=== PATIENT | male | born 1970 | race American Indian/Alaskan Native ===

== ENCOUNTER 2016-12-26 07:46 | Inpatient (IN) | payer OTHER ==
[2016-12-26 08:22] LABS: Hematocrit 38.3 % (35.5-45.6); Hemoglobin 12.5 gm/dl (11.8-15.2); Mean Corpuscular HGB Conc 33 % (32-34); Mean Corpuscular Hemoglobin 27 pg (28-32); Mean Corpuscular Volume 82 fl (84-94); Platelet Count 141 K/mm3 (140-440); Red Blood Count 4.64 M/mm3 (3.65-5.03); Red Cell Distribution Width 15.7 % (13.2-15.2); White Blood Count 3.6 K/mm3 (4.5-11.0)
[2016-12-26 08:33] LABS: INR 1.17 (0.87-1.13)
[2016-12-26 08:34] LABS: Partial Thromboplastin Time 36.9 Sec. (24.2-36.6)
[2016-12-26 08:47] LABS: Anion Gap 15 mmol/L; BUN/Creatinine Ratio 13; Blood Urea Nitrogen 15 mg/dL (9-20); Carbon Dioxide 26 mmol/L (22-30); Glucose 83 mg/dL (75-100); Potassium 4.1 mmol/L (3.6-5.0); Sodium 140 mmol/L (137-145)
--- NOTE | 2016-12-26 09:28 | Cat Scan Report ---
Cranial CT without contrast. History: Headache and right-sided weakness. Findings: The brain parenchyma is normal. There is no evidence of acute hemorrhage or infarct. The posterior fossa is normal. The ventricles are normal in size and contour. There are no masses or extra-axial collections. The calvarium is normal. Impression: Normal study.
[2016-12-26 09:35] LABS: Basophils % (Manual) 0 % (0.0-1.8); Blastocytes % (Manual) 0 %
[2016-12-26 09:36] LABS: Anisocytosis 1+; Diff Status Complete; Platelet Estimate Cons
[2016-12-26] MEDS ORDERED: NORMODYNE IV ONE ×3 (11:07→13:13)
--- NOTE | 2016-12-26 11:11 | Emergency Department Report ---
ED Headache HPI - General Chief Complaint: Headache Stated Complaint: RIGHT ARM NUMBNESS, HEADACHE, NAUSEA Time Seen by Provider: 12/26/16 10:43 Source: patient - History of Present Illness Initial Comments: 46-year-old male here with headache and elevated blood pressure. Patient states he last 24 hours had worsening headache. He noticed that his blood pressures in the 200s. He has been taking all his Times daily. Headache is diffuse and involves his entire head. Had no nausea no vomiting. He's had some vision difficulty. He believes his right eye was slightly droopy earlier but currently this is resolved. He also had some paresthesias in his right arm. Timing/Duration: 24 hours Quality: moderate Recent Head Trauma: occasional headaches Associated Symptoms: other (neck pain) Allergies/Adverse Reactions: Allergies No Known Allergies Allergy (Unverified 04/18/13 08:57) Home Medications: Ambulatory Orders Hydrochlorothiazide 25 mg PO DAILY 04/18/13 amLODIPine [Norvasc] 10 mg PO DAILY 04/18/13 Abacavir/Dolutegravir/Lamivudi [Triumeq Tablet] 1 each PO DAILY 12/26/16 Aspirin [Aspir-Low] 81 mg PO DAILY 12/26/16 Dapsone 100 mg PO DAILY 12/26/16 Metoprolol [Lopressor] 25 mg PO BID 12/26/16 ED Review of Systems ROS: Stated complaint: RIGHT ARM NUMBNESS, HEADACHE, NAUSEA Other details as noted in HPI Comment: All other systems reviewed and negative Constitutional: denies: chills, fever Eyes: denies: eye pain, eye discharge, vision change ENT: denies: ear pain, throat pain Respiratory: denies: cough, shortness of breath, wheezing Cardiovascular: denies: chest pain, palpitations Endocrine: no symptoms reported Gastrointestinal: denies: abdominal pain, nausea, diarrhea Genitourinary: denies: urgency, dysuria Musculoskeletal: denies: back pain, joint swelling, arthralgia Skin: denies: rash, lesions Neurological: headache, paresthesias. denies: weakness Psychiatric: denies: anxiety, depression Hematological/Lymphatic: denies: easy bleeding, easy bruising ED Past Medical Hx - Past Medical History Previous Medical History?: Yes Hx Hypertension: Yes - Surgical History Additional Surgical History: Hernia repair - Family History Family history: no significant - Social History Smoking Status: Never Smoker - Medications Home Medications: Home Medications Medication Instructions Recorded Confirmed Last Taken Type Hydrochlorothiazide 25 mg PO DAILY 04/18/13 12/26/16 12/25/16 History amLODIPine [Norvasc] 10 mg PO DAILY 04/18/13 12/26/16 12/25/16 History Abacavir/Dolutegravir/Lamivudi 1 each PO DAILY 12/26/16 12/26/16 12/25/16 History [Triumeq Tablet] Aspirin [Aspir-Low] 81 mg PO DAILY 12/26/16 12/26/16 12/25/16 History Dapsone 100 mg PO DAILY 12/26/16 12/26/16 12/25/16 History Metoprolol [Lopressor] 25 mg PO BID 12/26/16 12/26/16 12/25/16 History ED Physical Exam - General Limitations: No Limitations General appearance: alert, in no apparent distress - Head Head exam: Present: atraumatic, normocephalic - Eye Eye exam: Present: normal appearance, PERRL, EOMI. Absent: scleral icterus, conjunctival injection - ENT ENT exam: Present: mucous membranes moist - Neck Neck exam: Present: normal inspection - Respiratory Respiratory exam: Present: normal lung sounds bilaterally. Absent: respiratory distress, wheezes, rales - Cardiovascular Cardiovascular Exam: Present: regular rate, normal rhythm, normal heart sounds. Absent: systolic murmur, diastolic murmur, rubs, gallop - GI/Abdominal GI/Abdominal exam: Present: soft, normal bowel sounds. Absent: distended, tenderness - Rectal Rectal exam: Present: deferred - Extremities Exam Extremities exam: Present: normal inspection - Back Exam Back exam: Present: normal inspection - Neurological Exam Neurological exam: Present: alert, oriented X3 - Psychiatric Psychiatric exam: Present: normal affect, normal mood - Skin Skin exam: Present: warm, dry, intact, normal color. Absent: rash ED Course Vital Signs 12/26/16 12/26/16 12/26/16 07:53 07:56 11:19 Pulse Rate 91 H 72 Respiratory 14 Rate Blood Pressure 212/152 225/135 O2 Sat by Pulse 95 Oximetry 12/26/16 11:57 Pulse Rate 70 Respiratory Rate Blood Pressure 183/105 O2 Sat by Pulse Oximetry ED Medical Decision Making - Lab Data Result diagrams: 12/26/16 08:08 12/26/16 08:08 Laboratory Results - last 24 hr 12/26/16 12/26/16 12/26/16 08:08 08:08 08:08 WBC 3.6 L RBC 4.64 Hgb 12.5 Hct 38.3 MCV 82 L MCH 27 L MCHC 33 RDW 15.7 H Plt Count 141 Luce % (Auto) Life Skills Coach Add Manual Diff Complete Total Counted 100 Seg Neuts % (Manual) 52.0 Band Neutrophils % 0 Lymphocytes % (Manual) 34.0 Reactive Lymphs % (Man) 4.0 Monocytes % (Manual) 7.0 Eosinophils % (Manual) 3.0 Basophils % (Manual) 0 Metamyelocytes % 0 Myelocytes % 0 Promyelocytes % 0 Blast Cells % 0 Nucleated RBC % Not Reportable Seg Neutrophils # Man 1.9 Band Neutrophils # 0.0 Lymphocytes # (Manual) 1.2 Abs React Lymphs (Man) 0.1 Monocytes # (Manual) 0.3 Eosinophils # (Manual) 0.1 Basophils # (Manual) 0.0 Metamyelocytes # 0.0 Myelocytes # 0.0 Promyelocytes # 0.0 Blast Cells # 0.0 WBC Morphology Not Reportable Hypersegmented Neuts Not Reportable Hyposegmented Neuts Not Reportable Hypogranular Neuts Not Reportable Smudge Cells Not Reportable Toxic Granulation Not Reportable Toxic Vacuolation Not Reportable Dohle Bodies Not Reportable Pelger-Huet Anomaly Not Reportable Ld Rods Not Reportable Platelet Estimate Cons Clumped Platelets Not Reportable Plt Clumps, EDTA Not Reportable Large Platelets Not Reportable Giant Platelets Not Reportable Platelet Satelliting Not Reportable Plt Morphology Comment Not Reportable RBC Morphology Not Reportable Dimorphic RBCs Not Reportable Polychromasia Not Reportable Hypochromasia Not Reportable Poikilocytosis Not Reportable Anisocytosis 1+ Microcytosis Not Reportable Macrocytosis Not Reportable Spherocytes Not Reportable Pappenheimer Bodies Not Reportable Sickle Cells Not Reportable Target Cells Not Reportable Tear Drop Cells Not Reportable Ovalocytes Not Reportable Helmet Cells Not Reportable [place] Bodies Not Reportable [place] Rings Not Reportable Evelyn Cells Not Reportable Bite Cells Not Reportable Crenated Cell Not Reportable Elliptocytes Not Reportable Acanthocytes (Spur) Not Reportable Rouleaux Not Reportable Hemoglobin C Crystals Not Reportable Schistocytes Not Reportable Malaria parasites Not Reportable Alexis Bodies Not Reportable Hem Pathologist Commnt No PT 15.5 H INR 1.17 H APTT 36.9 H Thrombin Time Sodium 140 Potassium 4.1 Chloride 103.0 Carbon Dioxide 26 Anion Gap 15 BUN 15 Creatinine 1.2 Estimated GFR > 60 BUN/Creatinine Ratio 13 Glucose 83 Calcium 9.0 Troponin T < 0.010 12/26/16 08:08 WBC RBC Hgb Hct MCV MCH MCHC RDW Plt Count Luce % (Auto) Add Manual Diff Total Counted Seg Neuts % (Manual) Band Neutrophils % Lymphocytes % (Manual) Reactive Lymphs % (Man) Monocytes % (Manual) Eosinophils % (Manual) Basophils % (Manual) Metamyelocytes % Myelocytes % Promyelocytes % Blast Cells % Nucleated RBC % Seg Neutrophils # Man Band Neutrophils # Lymphocytes # (Manual) Abs React Lymphs (Man) Monocytes # (Manual) Eosinophils # (Manual) Basophils # (Manual) Metamyelocytes # Myelocytes # Promyelocytes # Blast Cells # WBC Morphology Hypersegmented Neuts Hyposegmented Neuts Hypogranular Neuts Smudge Cells Toxic Granulation Toxic Vacuolation Dohle Bodies Pelger-Huet Anomaly Ld Rods Platelet Estimate Clumped Platelets Plt Clumps, EDTA Large Platelets Giant Platelets Platelet Satelliting Plt Morphology Comment RBC Morphology Dimorphic RBCs Polychromasia Hypochromasia Poikilocytosis Anisocytosis Microcytosis Macrocytosis Spherocytes Pappenheimer Bodies Sickle Cells Target Cells Tear Drop Cells Ovalocytes Helmet Cells [place] Bodies [place] Rings [place] Cells Bite Cells Crenated Cell Elliptocytes Acanthocytes (Spur) Rouleaux Hemoglobin C Crystals Schistocytes Malaria parasites Alexis Bodies Hem Pathologist Commnt PT INR APTT Thrombin Time 19.2 Sodium Potassium Chloride Carbon Dioxide Anion Gap BUN Creatinine Estimated GFR BUN/Creatinine Ratio Glucose Calcium Troponin T - Radiology Data Radiology results: report reviewed, image reviewed - Medical Decision Making 46-year-old male who presents emergency Department with complaint of headache. Patient states that he has had a worsening headache for the last several days. His blood pressures in the 220s over 130s. He had some right eye difficulty earlier in the day and also some right arm paresthesias. These are currently resolved. His exam is unremarkable. He will likely need to be admitted for [place] hypertensive urgency and TIA workup. Patient given IV labetalol with reduction in blood pressure from 220s to 190s. Plan to admit the patient to the hospitalist service for treatment of hypertensive urgency/emergency and TIA workup. Portions of this chart were dictated with dictation software. There may be dictation errors contained within this note. Critical Care Time: Yes (35) Critical care attestation.: If time is entered above; I have spent that time in minutes in the direct care of this critically ill patient, excluding procedure time. Critical Care Time: 35 ED Disposition Clinical Impression: Hypertensive urgency Disposition: [id number] OP ADMIT IP TO THIS HOSP Is pt being admited?: Yes Condition: Stable Referrals: PRIMARY CARE, [Primary Care Provider] - 3-5 Days
[2016-12-26 18:15] VITALS: BP 171/127
--- NOTE | 2016-12-26 21:26 | History and Physical Report ---
History of Present Illness Date of examination: 12/26/16 Date of admission: 12/26/16 12:23 Chief complaint: CC Headache for one day Running High BP History of present illness: History of Present Illness 46-year-old AAM with pmh of HTN -uncontrolled comes in for headache and elevated blood pressure. Patient states during the last 24 hours had worsening headache. He noticed that his blood pressures in the 200s. He has been taking all his medicines daily. Headache is diffuse and involves his entire head. Had no nausea no vomiting. He's had some vision difficulty. He believes his right eye was slightly droopy earlier but currently this is resolved. He also had some paresthesias in his right arm. Past Medical History Previous Medical History?: Yes Hx Hypertension: Yes - Surgical History Additional Surgical History: Hernia repair - Family History Family history: no significant - Social History Smoking Status: Never Smoker - Medications Home Medications: Home Medications Medication Instructions Recorded Confirmed Last Taken Type Hydrochlorothiazide 25 mg PO DAILY 04/18/13 12/26/16 12/25/16 History amLODIPine [Norvasc] 10 mg PO DAILY 04/18/13 12/26/16 12/25/16 History Abacavir/Dolutegravir/Lamivudi 1 each PO DAILY 12/26/16 12/26/16 12/25/16 History [Triumeq Tablet] Aspirin [Aspir-Low] 81 mg PO DAILY 12/26/16 12/26/16 12/25/16 History Dapsone 100 mg PO DAILY 12/26/16 12/26/16 12/25/16 History Metoprolol [Lopressor] 25 mg PO BID 12/26/16 12/26/16 12/25/16 History Home Medications: Ambulatory Orders Hydrochlorothiazide 25 mg PO DAILY 04/18/13 amLODIPine [Norvasc] 10 mg PO DAILY 04/18/13 Abacavir/Dolutegravir/Lamivudi [Triumeq Tablet] 1 each PO DAILY 12/26/16 Aspirin [Aspir-Low] 81 mg PO DAILY 12/26/16 Dapsone 100 mg PO DAILY 12/26/16 Metoprolol [Lopressor] 25 mg PO BID 12/26/16 Review of Systems Stated complaint: RIGHT ARM NUMBNESS, HEADACHE, NAUSEA Other details as noted in HPI Comment: All other systems reviewed and negative Constitutional: denies: chills, fever Eyes: denies: eye pain, eye discharge, vision change ENT: denies: ear pain, throat pain Respiratory: denies: cough, shortness of breath, wheezing Cardiovascular: denies: chest pain, palpitations Endocrine: no symptoms reported Gastrointestinal: denies: abdominal pain, nausea, diarrhea Genitourinary: denies: urgency, dysuria Musculoskeletal: denies: back pain, joint swelling, arthralgia Skin: denies: rash, lesions Neurological: headache, paresthesias. denies: weakness Psychiatric: denies: anxiety, depression Hematological/Lymphatic: denies: easy bleeding, easy bruising Medications and Allergies Allergies Allergy/AdvReac Type Severity Reaction Status Date / Time No Known Allergies Allergy Unverified 04/18/13 08:57 Home Medications Medication Instructions Recorded Confirmed Last Taken Type Hydrochlorothiazide 25 mg PO DAILY 04/18/13 12/26/16 12/25/16 History amLODIPine [Norvasc] 10 mg PO DAILY 04/18/13 12/26/16 12/25/16 History Abacavir/Dolutegravir/Lamivudi 1 each PO DAILY 12/26/16 12/26/16 12/25/16 History [Triumeq Tablet] Aspirin [Aspir-Low] 81 mg PO DAILY 12/26/16 12/26/16 12/25/16 History Dapsone 100 mg PO DAILY 12/26/16 12/26/16 12/25/16 History Metoprolol [Lopressor] 25 mg PO BID 12/26/16 12/26/16 12/25/16 History Exam - Constitutional Vitals: Temp Pulse Resp BP Pulse Ox 98.7 F 95 H 15 171/127 98 12/26/16 18:15 12/26/16 18:15 12/26/16 18:15 12/26/16 18:15 12/26/16 18:15 General appearance: Present: no acute distress, well-nourished - EENT Eyes: Present: PERRL ENT: hearing intact, clear oral mucosa - Neck Neck: Present: supple, normal ROM - Respiratory Respiratory effort: normal Respiratory: bilateral: CTA - Cardiovascular Heart Sounds: Present: S1 & S2. Absent: rub, click - Extremities Extremities: pulses symmetrical, No edema Peripheral Pulses: within normal limits - Abdominal General gastrointestinal: Present: soft, non-tender, non-distended, normal bowel sounds Male genitourinary: Present: normal - Integumentary Integumentary: Present: clear, warm, dry - Musculoskeletal Musculoskeletal: gait normal, strength equal bilaterally - Psychiatric Psychiatric: appropriate mood/affect, intact judgment & insight - Neurologic Neurologic: CNII-XII intact, moves all extremities Results - Labs CBC & Chem 7: 12/26/16 08:08 12/26/16 08:08 Labs: Laboratory Last Values WBC 3.6 K/mm3 (4.5-11.0) L 12/26/16 08:08 RBC 4.64 M/mm3 (3.65-5.03) 12/26/16 08:08 Hgb 12.5 gm/dl (11.8-15.2) 12/26/16 08:08 Hct 38.3 % (35.5-45.6) 12/26/16 08:08 MCV 82 fl (84-94) L 12/26/16 08:08 MCH 27 pg (28-32) L 12/26/16 08:08 MCHC 33 % (32-34) 12/26/16 08:08 RDW 15.7 % (13.2-15.2) H 12/26/16 08:08 Plt Count 141 K/mm3 (140-440) 12/26/16 08:08 [place] % (Auto) Yard Cleaner 12/26/16 08:08 Add Manual Diff Complete 12/26/16 08:08 Total Counted 100 12/26/16 08:08 Seg Neuts % (Manual) 52.0 % (40.0-70.0) 12/26/16 08:08 Band Neutrophils % 0 % 12/26/16 08:08 Lymphocytes % (Manual) 34.0 % (13.4-35.0) 12/26/16 08:08 Reactive Lymphs % (Man) 4.0 % 12/26/16 08:08 Monocytes % (Manual) 7.0 % (0.0-7.3) 12/26/16 08:08 Eosinophils % (Manual) 3.0 % (0.0-4.3) 12/26/16 08:08 Basophils % (Manual) 0 % (0.0-1.8) 12/26/16 08:08 Metamyelocytes % 0 % 12/26/16 08:08 Myelocytes % 0 % 12/26/16 08:08 Promyelocytes % 0 % 12/26/16 08:08 Blast Cells % 0 % 12/26/16 08:08 Nucleated RBC % Not Reportable 12/26/16 08:08 Seg Neutrophils # Man 1.9 K/mm3 (1.8-7.7) 12/26/16 08:08 Band Neutrophils # 0.0 K/mm3 12/26/16 08:08 Lymphocytes # (Manual) 1.2 K/mm3 (1.2-5.4) 12/26/16 08:08 Abs React Lymphs (Man) 0.1 K/mm3 12/26/16 08:08 Monocytes # (Manual) 0.3 K/mm3 (0.0-0.8) 12/26/16 08:08 Eosinophils # (Manual) 0.1 K/mm3 (0.0-0.4) 12/26/16 08:08 Basophils # (Manual) 0.0 K/mm3 (0.0-0.1) 12/26/16 08:08 Metamyelocytes # 0.0 K/mm3 12/26/16 08:08 Myelocytes # 0.0 K/mm3 12/26/16 08:08 Promyelocytes # 0.0 K/mm3 12/26/16 08:08 Blast Cells # 0.0 K/mm3 12/26/16 08:08 WBC Morphology Not Reportable 12/26/16 08:08 Hypersegmented Neuts Not Reportable 12/26/16 08:08 Hyposegmented Neuts Not Reportable 12/26/16 08:08 Hypogranular Neuts Not Reportable 12/26/16 08:08 Smudge Cells Not Reportable 12/26/16 08:08 Toxic Granulation Not Reportable 12/26/16 08:08 Toxic Vacuolation Not Reportable 12/26/16 08:08 Dohle Bodies Not Reportable 12/26/16 08:08 Pelger-Huet Anomaly Not Reportable 12/26/16 08:08 Ld Rods Not Reportable 12/26/16 08:08 Platelet Estimate Cons 12/26/16 08:08 Clumped Platelets Not Reportable 12/26/16 08:08 Plt Clumps, EDTA Not Reportable 12/26/16 08:08 Large Platelets Not Reportable 12/26/16 08:08 Giant Platelets Not Reportable 12/26/16 08:08 Platelet Satelliting Not Reportable 12/26/16 08:08 Plt Morphology Comment Not Reportable 12/26/16 08:08 RBC Morphology Not Reportable 12/26/16 08:08 Dimorphic RBCs Not Reportable 12/26/16 08:08 Polychromasia Not Reportable 12/26/16 08:08 Hypochromasia Not Reportable 12/26/16 08:08 Poikilocytosis Not Reportable 12/26/16 08:08 Anisocytosis 1+ 12/26/16 08:08 Microcytosis Not Reportable 12/26/16 08:08 Macrocytosis Not Reportable 12/26/16 08:08 Spherocytes Not Reportable 12/26/16 08:08 Pappenheimer Bodies Not Reportable 12/26/16 08:08 Sickle Cells Not Reportable 12/26/16 08:08 Target Cells Not Reportable 12/26/16 08:08 Tear Drop Cells Not Reportable 12/26/16 08:08 Ovalocytes Not Reportable 12/26/16 08:08 Helmet Cells Not Reportable 12/26/16 08:08 [place] Bodies Not Reportable 12/26/16 08:08 [place] Rings Not Reportable 12/26/16 08:08 [place] Cells Not Reportable 12/26/16 08:08 Bite Cells Not Reportable 12/26/16 08:08 Crenated Cell Not Reportable 12/26/16 08:08 Elliptocytes Not Reportable 12/26/16 08:08 Acanthocytes (Spur) Not Reportable 12/26/16 08:08 Rouleaux Not Reportable 12/26/16 08:08 Hemoglobin C Crystals Not Reportable 12/26/16 08:08 Schistocytes Not Reportable 12/26/16 08:08 Malaria parasites Not Reportable 12/26/16 08:08 Alexis Bodies Not Reportable 12/26/16 08:08 Hem Pathologist Commnt No 12/26/16 08:08 PT 15.5 Sec. (12.2-14.9) H 12/26/16 08:08 INR 1.17 (0.87-1.13) H 12/26/16 08:08 APTT 36.9 Sec. (24.2-36.6) H 12/26/16 08:08 Thrombin Time 19.2 Sec. (15.1-19.6) 12/26/16 08:08 Sodium 140 mmol/L (137-145) 12/26/16 08:08 Potassium 4.1 mmol/L (3.6-5.0) 12/26/16 08:08 Chloride 103.0 mmol/L (98-107) 12/26/16 08:08 Carbon Dioxide 26 mmol/L (22-30) 12/26/16 08:08 Anion Gap 15 mmol/L 12/26/16 08:08 BUN 15 mg/dL (9-20) 12/26/16 08:08 Creatinine 1.2 mg/dL (0.8-1.5) 12/26/16 08:08 Estimated GFR > 60 ml/min 12/26/16 08:08 BUN/Creatinine Ratio 13 % 12/26/16 08:08 Glucose 83 mg/dL (75-100) 12/26/16 08:08 POC Glucose 86 (70-105) 12/26/16 11:32 Calcium 9.0 mg/dL (8.4-10.2) 12/26/16 08:08 Troponin T < 0.010 ng/mL (0.00-0.029) 12/26/16 08:08 - Imaging and Cardiology EKG: report reviewed (LVH 78/minNSR) CT Scan - head: report reviewed (NAF) Assessment and Plan Advance Directives: Yes (Full code ) VTE prophylaxis?: Chemical - Patient Problems (1) Hypertensive urgency Status: Acute Plan to address problem: Patient started ion Losartanand Hydralazine in addition to his Amlodipine and Metoprolol. Also IV Hydralazine PRN Cardene drip if necessary (2) HIV (human immunodeficiency virus infection) Status: Chronic Plan to address problem: Cont anti retrovirals (3) Headache Status: Acute Qualifiers: Headache type: H Headache chronicity pattern: acute headache Intractability: I Plan to address problem: Sec to High BP Symptomatic treatment Should resolve with contro; of BP (4) Noncompliance Status: Chronic Plan to address problem: Patient to be counselled about danges of HighBP on Kidney function etc tomorrow and discharge time (5) DVT prophylaxis Status: Acute Plan to address problem: On Lovenox
[2016-12-26] MEDS ORDERED: PERCOCET 5/325 PO PRN (21:27)
[2016-12-26] MEDS ORDERED: DULCOLAX PR PRN (21:27)
[2016-12-26] MEDS ORDERED: AMBIEN PO PRN (21:27)
[2016-12-26] MEDS ORDERED: TYLENOL PO PRN (21:27)
[2016-12-26] MEDS ORDERED: ZOFRAN IV PRN (21:27)
[2016-12-26] MEDS ORDERED: MILK OF MAGNESIA PO PRN (21:27)
[2016-12-26] MEDS ORDERED: LOPRESSOR PO SCH (22:00)
[2016-12-26] MEDS ORDERED: COZAAR PO SCH (22:00)
[2016-12-26] MEDS ORDERED: NORVASC PO SCH (22:00)
[2016-12-26] MEDS ORDERED: PEPCID PO SCH (22:00)
[2016-12-27] MEDS ORDERED: NON-FORMULARY (Abacavir/Dolutegravir/Lamivudi [Triumeq Tablet] 1 EACH) PO SCH (10:00)
[2016-12-27] MEDS ORDERED: HCTZ PO SCH (10:00)
[2016-12-27] MEDS ORDERED: DAPSONE PO SCH (10:00)
[2016-12-27] MEDS ORDERED: HALFPRIN EC PO SCH (10:00)
[2016-12-27] MEDS ORDERED: APRESOLINE IV PRN (10:30)
[2016-12-27] MEDS ORDERED: COZAAR PO SCH (11:00)
[2016-12-27] MEDS ORDERED: APRESOLINE PO SCH (14:00)
== END 2016-12-26 19:21 | disposition left against medical advice (07) | DRG 304 ==
LOC: ED 07:46 → 4A 12:23
PROVIDERS: ADMIT Internal Medicine; ATTEND Internal Medicine
DX: I16.0 Hypertensive urgency (principal); B20 Human immunodeficiency virus [HIV] disease; Z91.19 Patient's noncompliance with other medical treatment and regimen; I10 Essential (primary) hypertension
CPT/HCPCS: 36415; 70450; 80048; 82962; 84484; 85007; 85025; 85610; 85670; 85730; 93005; 93010